=== PATIENT | female | born 1995 | race Caucasian/White ===

== ENCOUNTER 2019-05-25 22:21 | Emergency (ER) | payer OTHER ==
[~2019-05-25] VITALS: Ht 152.4 cm; Wt 52.2 kg
[2019-05-25 22:33] VITALS: BP 105/71; Ht 152.4 cm; Wt 52.2 kg
== END 2019-05-25 23:52 | disposition home or self-care (01) ==
LOC: ED 22:21
DX: O26.893 Other specified pregnancy related conditions, third trimester (principal); E86.0 Dehydration; O44.03 Complete placenta previa NOS or without hemorrhage, third trimester; Z3A.28 28 weeks gestation of pregnancy